=== PATIENT | female | born 2000 | race Two or more races ===

== ENCOUNTER 2023-09-26 09:06 | Outpatient (REF) | payer BC, SELFPAY ==
--- NOTE | ~2023-09-26 | US_ITS ---
EXAMINATION: US PELVIS CLINICAL INFORMATION: Pelvic and perineal pain. COMPARISON: None available. TECHNIQUE: Ultrasound of the pelvis is performed using both transabdominal and transvaginal transducers along with color Doppler. Transvaginal imaging is performed due to inadequate visualization transabdominally. FINDINGS: The uterus appears normal measuring 8.1 x 2.8 x 3.7 cm. Echogenicity is normal. Endometrial stripe is smooth measuring 3 mm in thickness. The right ovary measures 1.0 x 1.6 x 1.0 cm, volume 0.8 mL. Follicle count appears 4 or less. The left ovary measures 2.4 x 1.3 x 1.3 cm, volume 2.1 mL. Follicle count appears 4 or less. US/US pelvic and transvaginal IMPRESSION: No explanation for pelvic and perineal pain. Ovaries are small and follicle count appears low. Recommend clinical correlation and consider evaluation for POI.
== END 2023-09-26 09:07 | disposition home or self-care (01) ==
LOC: HO.UMASIMG 09:06
PROVIDERS: PCP Family Medicine; Visit Provider Family Medicine
DX: R10.2 Pelvic and perineal pain (principal); N92.1 Excessive and frequent menstruation with irregular cycle; L70.0 Acne vulgaris
CPT/HCPCS: 76830; 76856